=== PATIENT | female | born 1995 | race Two or more races ===

== ENCOUNTER 2018-08-02 13:47 | Outpatient (CLI) | payer MEDICAID ==
[2018-08-02 15:25] LABS: ADD UMIC YES; UR ASCORBIC ACID 20 mg/dL (NEGATIVE); UR BACTERIA FEW /HPF (NONE SEEN); UR BILIRUBIN (Dip) NEGATIVE (NEGATIVE); UR BLOOD (Dip) NEGATIVE (NEGATIVE); UR CLARITY CLOUDY (CLEAR); UR COLOR YELLOW (YELLOW); UR GLUCOSE (Dip) NEGATIVE (NEGATIVE); UR KETONES (Dip) NEGATIVE (NEGATIVE); UR LEUKOCYTE ESTERASE (Dip) 3+ Leu/ul (NEGATIVE); UR NITRITE (Dip) NEGATIVE (NEGATIVE); UR RBC 7 /HPF (0-5); UR SPECIFIC GRAVITY (Dip) 1.017 (1.003-1.030); UR SQUAMOUS EPITHELIAL CELL MANY /HPF (FEW); UR TOTAL PROTEIN (Dip) 2+ mg/dl (NEGATIVE); UR UROBILINOGEN (Dip) NEGATIVE (NEGATIVE); UR WBC 15 /HPF (0-5)
[2018-08-02] MEDS ORDERED: LACTATED RINGER'S 1,000 ML IV (15:36)
[2018-08-02 15:47] LABS: AMPHETAMINE/METHAMPHETAMINE Negative (NEGATIVE); BARBITURATES Negative (NEGATIVE); BENZODIAZEPINES Negative (NEGATIVE); CANNABINOIDS Negative (NEGATIVE); COCAINE Negative (NEGATIVE); OPIATES Negative (NEGATIVE)
[2018-08-02] MEDS ORDERED: MISOPROSTOL 200 MCG TAB PR (16:00)
[2018-08-02] MEDS ORDERED: BUTORPHANOL 2 MG INJ IV (16:00)
[2018-08-02] MEDS ORDERED: IBUPROFEN 600 MG TAB PO (16:00)
[2018-08-02] MEDS ORDERED: METHYLERGONOVINE 0.2 MG INJ IM (16:00)
[2018-08-02] MEDS ORDERED: CARBOPROST 250 MCG INJ IM (16:00)
[2018-08-02] MEDS ORDERED: OXYCODONE/ASPIRIN (4.88/325) TAB PO (16:00)
[2018-08-02] MEDS ORDERED: LIDOCAINE 1% (MPF) 30 ML INJ INJ (16:00)
[2018-08-02] MEDS ORDERED: OXYTOCIN 30 UNITS/LR 500 ML IV ×3 (16:00)
== END 2018-08-02 17:30 | disposition left against medical advice (07) ==
LOC: OBT 13:47 → L-D 13:47 → OBT 17:30
DX: O02.1 Missed abortion (principal)
CPT/HCPCS: 76815; 76818; 80307; 81001; 87591